=== PATIENT | female | born 1980 | race Caucasian/White ===

== ENCOUNTER 2025-05-29 14:45 | Outpatient (CLI) | payer BC, SELFPAY | END 2025-05-29 14:46 | disposition home or self-care (01) | LOC: NFLDREF 06-01 02:28 | PROVIDERS: PCP Family Medicine; Referring Provider Family Medicine; Visit Provider Obstetrics & Gynecology | DX: R14.0 Abdominal distension (gaseous) (principal) | CPT/HCPCS: 87086 ==